=== PATIENT | female | born 1960 | race Caucasian/White ===

== ENCOUNTER 2017-06-06 14:56 | Emergency (ER) | payer OTHER ==
[~2017-06-06] VITALS: Ht 172.7 cm; Wt 76.2 kg
[2017-06-06 15:02] VITALS: BP 136/84; Ht 172.7 cm; Wt 76.2 kg
== END 2017-06-06 16:01 | disposition home or self-care (01) ==
LOC: ED 14:56
DX: S63.502A Unspecified sprain of left wrist, initial encounter (principal); W01.0XXA Fall on same level from slipping, tripping and stumbling without subsequent striking against object, initial encounter; Y93.89 Activity, other specified; Y92.89 Other specified places as the place of occurrence of the external cause; Y99.8 Other external cause status
CPT/HCPCS: Q0092

== ENCOUNTER 2017-07-16 05:57 | Day surgery (SDC) | payer OTHER ==
[2017-07-11 16:19] LABS: BASOPHIL % 0.8 % (0-2); PLATELET COUNT 275 x10^3mcL (130-400); RED CELL DISTRIBUTION WIDTH 13.9 % (11.5-14.5)
[2017-07-11 16:32] LABS: CARBON DIOXIDE 28.1 mmol/L (21-32); CHLORIDE SERUM 104 mmol/L (98-107); CREATININE SERUM 0.8 mg/dL (0.6-1.0); GFR1 > 60 mL/min; GLUCOSE SERUM 96 mg/dL (74-106); POTASSIUM SERUM 3.9 mmol/L (3.5-5.1); SODIUM SERUM 139 mmol/L (136-145)
[~2017-07-16] VITALS: Ht 172.7 cm; Wt 76.2 kg
[2017-07-16 06:18] VITALS: BP 127/82
[2017-07-16 13:28] VITALS: BP 104/65
== END 2017-07-16 13:20 | disposition home or self-care (01) ==
LOC: DS 05:57 → OR 07:30 → DS 13:20
PROVIDERS: Surgery
PROC: 0FT44ZZ Resection of Gallbladder, Percutaneous Endoscopic Approach (ICD-10-PCS; principal; 2017-07-16 07:30)
DX: K80.10 Calculus of gallbladder with chronic cholecystitis without obstruction (principal); J45.909 Unspecified asthma, uncomplicated; E03.9 Hypothyroidism, unspecified; F17.200 Nicotine dependence, unspecified, uncomplicated
CPT/HCPCS: J0690; J1170; J2405; J2704; J2710; J3010; J3490; J7120

== ENCOUNTER 2017-12-03 08:50 | Emergency (ER) | payer OTHER ==
[~2017-12-03] VITALS: Ht 172.7 cm; Wt 75.8 kg
[2017-12-03 08:55] VITALS: Ht 172.7 cm; Wt 75.8 kg
[2017-12-03 10:37] VITALS: BP 138/76
== END 2017-12-03 10:37 | disposition home or self-care (01) ==
LOC: ED 08:50
DX: M25.532 Pain in left wrist (principal); F17.210 Nicotine dependence, cigarettes, uncomplicated; Z88.6 Allergy status to analgesic agent; Z88.5 Allergy status to narcotic agent; Z90.49 Acquired absence of other specified parts of digestive tract
CPT/HCPCS: Q0092

== ENCOUNTER 2018-04-08 16:41 | Emergency (ER) | payer OTHER ==
[~2018-04-08] VITALS: Ht 172.7 cm; Wt 76.2 kg
[2018-04-08 16:55] VITALS: Ht 172.7 cm; Wt 76.2 kg
[2018-04-08 18:04] VITALS: BP 126/66
== END 2018-04-08 18:04 | disposition home or self-care (01) ==
LOC: ED 16:41
DX: S40.861A Insect bite (nonvenomous) of right upper arm, initial encounter (principal); L03.113 Cellulitis of right upper limb; E03.9 Hypothyroidism, unspecified; Z88.6 Allergy status to analgesic agent; Z88.8 Allergy status to other drugs, medicaments and biological substances; W57.XXXA Bitten or stung by nonvenomous insect and other nonvenomous arthropods, initial encounter; Y93.89 Activity, other specified; Y92.89 Other specified places as the place of occurrence of the external cause; Y99.8 Other external cause status
CPT/HCPCS: J0690; J1885

== ENCOUNTER 2018-07-05 14:31 | Emergency (ER) | payer OTHER ==
[~2018-07-05] VITALS: Ht 172.7 cm; Wt 75.7 kg
[2018-07-05 14:37] VITALS: BP 121/67; Ht 172.7 cm; Wt 75.7 kg
== END 2018-07-05 15:51 | disposition home or self-care (01) ==
LOC: ED 14:31
DX: S60.464A Insect bite (nonvenomous) of right ring finger, initial encounter (principal); Z88.6 Allergy status to analgesic agent; Z88.5 Allergy status to narcotic agent; W57.XXXA Bitten or stung by nonvenomous insect and other nonvenomous arthropods, initial encounter; Y93.89 Activity, other specified; Y92.89 Other specified places as the place of occurrence of the external cause; Y99.8 Other external cause status

== ENCOUNTER 2019-06-22 10:45 | Emergency (ER) | payer OTHER ==
[~2019-06-22] VITALS: Ht 172.7 cm; Wt 82.1 kg
[2019-06-22 11:02] VITALS: Ht 172.7 cm; Wt 82.1 kg
[2019-06-22 13:45] VITALS: BP 158/74
== END 2019-06-22 14:04 | disposition home or self-care (01) ==
LOC: ED 10:45
DX: R05 Cough (principal); F17.210 Nicotine dependence, cigarettes, uncomplicated; M79.10 Myalgia, unspecified site; Z90.49 Acquired absence of other specified parts of digestive tract; Z88.6 Allergy status to analgesic agent
CPT/HCPCS: 99406